=== PATIENT | female | born 1990 | race Caucasian/White ===

== ENCOUNTER 2016-10-04 10:53 | Emergency (ER) | payer SELFPAY ==
[2016-10-04 11:13] VITALS: TEMP 97.5
[2016-10-04 11:14] VITALS: BMI 24.0
[2016-10-04] MEDS ORDERED: OXYCODONE HCL 5 MG TABLET PO ONE (11:24)
--- NOTE | 2016-10-04 11:39 | EDPRACDOC ---
- General Information Chief Complaint: Lower Leg Pain Stated Complaint: RT LEG PAIN Time Seen by Provider: 10/04/16 11:21 Information Source: Patient Mode Of Arrival: Car Home Medications: Home Medications Ibuprofen Tablet [Motrin] 800 mg PO QID #30 tab 10/04/16 Allergies/Adverse Reactions: Allergies Allergy/AdvReac Type Severity Reaction Status Date / Time Sulfa (Sulfonamide Allergy See Verified 10/04/16 11:16 Antibiotics) Comments - History of Present Illness Onset: 3-4 days HPI: PT PRESENTS WITH RIGHT CALF PAIN THAT BEGAN A COUPLE OF DAYS AGO WITH PAIN BEHIND THE RIGHT KNEE. PT STATES IT IS PAINFUL TO WALK ON THE LEG. PT DOES NOT TAKE CONTROL BUT SHE DOES SMOKE, Mechanism: Reports: None Circumstances: Reports: Unknown Last Tetanus: Unknown Severity: Reports: Mild Able to Bear Weight: Limited Associated Signs & Symptoms: Reports: Numbness Pain In: Reports: Foot, Ankle, Leg, Knee, Hip, Thigh ED Past Medical History - History Reviewed Yes Nurses notes reviewed and agree except as marked - Patient Medical History Psychological History: Denies: Depression - Social Medical History Smoking Status: Heavy tobacco smoker (5 or more cigarettes/day or daily pipe/ cigar) EDM Review of Systems - Review of Systems ROS Negative Except as Marked: Yes All systems reviewed and were negative except as marked - Physical Exam Constitutional: Alert Oriented to: Time, Person, Place Last recorded Vital Signs: Last Vital Signs Temp 97.5 F 10/04/16 11:13 Pulse 98 10/04/16 11:13 Resp 18 10/04/16 11:13 BP 145/70 10/04/16 11:13 Pulse Ox 97 10/04/16 11:13 Oxygen Pulse Oxygen Saturation 97 O2 Device Oxygen Flow Rate Fraction of Inspired Oxygen ( FIO2) - HEENT Head: Normal ( normocephalic) Eye Exam: Normal (PERRL, EOMI, Sclera white) Oropharynx: Normal (Pharynx:Moist without exudate,Gums-no swelling) Nose: No Symptoms Reported (septum midline) Neck: Normal (FROM, trachea at midline) - Respiratory/Cardiovascular Respiratory: Normal - CTA (BBS clear to auscultation without adventitious sounds ) Cardiovascular: Normal (RRR without murmur, gallop or rub) - GI Auscultation: Normal (NABS) Palpation: Normal (Soft,No rebound or guarding, non distended) Tenderness: Non tender Nolasco's Sign: Negative Rectal Exam: Deferred - Musculoskeletal Back: Normal (Non-Tender) Extremities: Calf Tenderness, Pedal Pulse (2+). negative: Pedal Edema - Integumentary Skin: Normal, Warm, Dry Lymphatics: Normal (no adenopathy) - Neurologic Memory Impaired: Normal Motor Function: Normal (Normal tone, Pulses 2+ No cyanosis or edema, FROM) Cranial Nerve: Normal (CN II-X11 intact sensation, strength 5/5) Cerebellar: Normal Mood Description: Normal Perception: Normal - Differential Diagnosis Other - Results 10/04/16 11:32 10/04/16 11:32 Decision Time to Discharge: 12:59 - Departure Disposition: Home Condition: Stable Final Diagnosis: Garcia cyst Qualifiers: Laterality: right Qualified Code(s): M71.21 - Synovial cyst of popliteal space [Garcia], right knee Instructions: RICE: Routine Care for Injuries, Garcia's Cyst (ED) Education/Counseling Given To: Patient Education/Counseling Given Regarding: Diagnosis, Treatment, Prognosis, Follow Up Referrals: Ronan Hernandez II, MD [Staff Physician] - One Week Maxi Johnson MD [Staff Physician] - One Week Prescriptions: Ibuprofen Tablet [Motrin] 800 mg PO QID #30 tab Additional Instructions: ICE AND ELEVATION. FOLLOW UP WITH ORTHOPEDIC IF PAIN PERSIST. FOLLOW UP WITH PCP NEXT WEEK. RETURN TO THE ED FOR WORSENING.
[2016-10-04 11:42] LABS: AUTOMATED BASOPHIL 0.8 % (0-2); AUTOMATED EOSINOPHIL 1.2 % (0-5); AUTOMATED LYMPH 20.7 % (17-44); AUTOMATED MONOCYTE 7.3 % (3-10); MPV 7.9 fL (7.4-10.4)
[2016-10-04 11:54] LABS: BLOOD UREA NITROGEN 12 MG/DL (7-17); CALCIUM 9.4 MG/DL (8.4-10.2); CALCULATED OSMOLALITY 268 MOs/Kg (270-290); CHLORIDE 102 mEq/L (98-107); GLUCOSE 97 MG/DL (70-99); SODIUM LEVEL 139 mEq/L (137-146); TOTAL PROTEIN 7.7 G/DL (6.3-8.2)
[2016-10-04 12:26] LABS: LEUKOCYTES/URINE NEG (NEGATIVE); NITRITE/URINE NEG (NEGATIVE); RBC/URINE 0-2 (0-5); URINE OCCULT BLOOD NEG (NEG/TRACE); WBC/URINE 0-2 (0-5)
--- NOTE | 2016-10-04 12:55 | DIRPT ---
CLINICAL DATA: 26-year-old female with right calf pain EXAM: RIGHT LOWER EXTREMITY VENOUS DOPPLER ULTRASOUND TECHNIQUE: [place]ford-scale sonography with graded compression, as well as color Doppler and duplex ultrasound were performed to evaluate the lower extremity deep venous systems from the level of the common femoral vein and including the common femoral, femoral, profunda femoral, popliteal and calf veins including the posterior tibial, peroneal and gastrocnemius veins when visible. The superficial great saphenous vein was also interrogated. Spectral Doppler was utilized to evaluate flow at rest and with distal augmentation maneuvers in the common femoral, femoral and popliteal veins. COMPARISON: None. FINDINGS: Contralateral Common Femoral Vein: Respiratory phasicity is normal and symmetric with the symptomatic side. No evidence of thrombus. Normal compressibility. Common Femoral Vein: No evidence of thrombus. Normal compressibility, respiratory phasicity and response to augmentation. Saphenofemoral Junction: No evidence of thrombus. Normal compressibility and flow on color Doppler imaging. Profunda Femoral Vein: No evidence of thrombus. Normal compressibility and flow on color Doppler imaging. Femoral Vein: No evidence of thrombus. Normal compressibility, respiratory phasicity and response to augmentation. Popliteal Vein: No evidence of thrombus. Normal compressibility, respiratory phasicity and response to augmentation. Calf Veins: No evidence of thrombus. Normal compressibility and flow on color Doppler imaging. Superficial Great Saphenous Vein: No evidence of thrombus. Normal compressibility and flow on color Doppler imaging. Venous Reflux: None. Other Findings: None. IMPRESSION: No evidence of deep venous thrombosis. Electronically Signed By: Judson Sheehan M.D. On: 10/04/2016 12:52
[2016-10-04 13:55] VITALS: BP 104/60; PULSE 69
== END 2016-10-04 14:06 | disposition home or self-care (01) ==
LOC: EDMC 10:53
DX: M71.21 Synovial cyst of popliteal space [Baker], right knee (principal)
CPT/HCPCS: 36415; 80053; 81001; 81025; 85025; 93971; 99283; J3490

== ENCOUNTER 2016-10-26 09:39 | Emergency (ER) | payer BC ==
[2016-10-26 10:00] VITALS: TEMP 97.7; BMI 22.9
[2016-10-26] MEDS ORDERED: ONDANSETRON HCL 4 MG ODT TAB PO ONE (10:08)
--- NOTE | 2016-10-26 10:24 | EDPRACDOC ---
- General Information Chief Complaint: Abdominal Pain Stated Complaint: VOMITING Time Seen by Provider: 10/26/16 10:07 Home Medications: Home Medications Ondansetron HCl [Zofran] 4 mg PO TID PRN #14 tablet 10/26/16 Promethazine [Phenergan] 25 mg PO Q6 PRN #10 tab 10/26/16 Allergies/Adverse Reactions: Allergies Allergy/AdvReac Type Severity Reaction Status Date / Time Sulfa (Sulfonamide Allergy See Verified 10/26/16 09:56 Antibiotics) Comments - History of Present Illness Onset: 29 hous HPI: CONSTIPATION SO DAYS AGO. PATIENT SELF-TREATED WITH MULTIPLE STOOL SOFTENERS. FOLLOWING DAY SHE DEVELOPED CRAMPY EPIGASTRIC PERIUMBILICAL ABDOMINAL PAIN ASSOCIATED MULTIPLE EPISODES OF NAUSEA VOMITING. NO DIARRHEA BUT SHE HAS HAD FORMED AND LOOSE STOOL. NO FEVER CHILLS OR OTHER SYSTEMIC SIGNS OF ILLNESS. Last Menstrual Period: 1 week ED Past Medical History - History Reviewed Yes Nurses notes reviewed and agree except as marked - Patient Medical History Psychological History: Reports: Anxiety. Denies: Depression Systemic History: Reports: No Significant History Surgical History: Reports: No Significant History - Social Medical History Smoking Status: Heavy tobacco smoker (5 or more cigarettes/day or daily pipe/ cigar) ETOH: None Substance Abuse: None Lives With: Family Lives In: Home EDM Review of Systems - Review of Systems ROS Negative Except as Marked: Yes All systems reviewed and were negative except as marked - Physical Exam Constitutional: No apparent distress, Alert (Awake), Restless (ANXIOUS) Oriented to: Time, Person, Place Last recorded Vital Signs: Last Vital Signs Temp 97.7 F 10/26/16 09:56 Pulse 112 10/26/16 09:56 Resp 18 10/26/16 09:56 BP 127/70 10/26/16 09:56 Pulse Ox 100 10/26/16 09:56 Oxygen Pulse Oxygen Saturation 100 O2 Device Room Air Oxygen Flow Rate Fraction of Inspired Oxygen ( FIO2) - HEENT Head: Normal ( normocephalic) Eye Exam: Normal (PERRL, EOMI, Sclera white) Oropharynx: Normal (Pharynx:Moist without exudate,Gums-no swelling) Nose: No Symptoms Reported (septum midline) Neck: Normal (FROM, trachea at midline) - Respiratory/Cardiovascular Respiratory: Normal - CTA (BBS clear to auscultation without adventitious sounds ) Cardiovascular: Normal (RRR without murmur, gallop or rub) - GI Auscultation: Normal (NABS) Palpation: Normal (Soft,No rebound or guarding, non distended) Tenderness: Non tender. negative: Guarding, RUQ, Rebound, Rigidity, Epigastric Nolasco's Sign: Negative - Musculoskeletal Back: Normal (Non-Tender) Extremities: Normal (Normal tone, Pulses 2+ No cyanosis or edema, FROM) - Integumentary Skin: Normal, Warm, Dry Lymphatics: Normal (no adenopathy) - Neurologic Memory Impaired: Normal Motor Function: Normal (Normal tone, Pulses 2+ No cyanosis or edema, FROM) Cranial Nerve: Normal (CN II-X11 intact sensation, strength 5/5) Cerebellar: Normal Mood Description: Normal Thought: Coherent Perception: Normal - Re-evaluation Re-evaluation 3 Re-evaluation Time: 11:31 (TAKING PO'S, NO FURTHER PROBLEMS) - Results Urine Color Yellow 10/26/16 10:00 Urine Clarity Clear 10/26/16 10:00 Urine pH 9.0 (5.0-8.0) H 10/26/16 10:00 Ur Specific [place] </=1.005 (1.003-1.035) 10/26/16 10:00 Urine Protein 2+ (NEG/TRACE) H 10/26/16 10:00 Urine Glucose (UA) Neg (NEGATIVE) 10/26/16 10:00 Urine Ketones 3+ (NEGATIVE) H 10/26/16 10:00 Urine Occult Blood Neg (NEG/TRACE) 10/26/16 10:00 Urine Nitrite Neg (NEGATIVE) 10/26/16 10:00 Urine Bilirubin Neg (NEGATIVE) 10/26/16 10:00 Urine Urobilinogen <2.0 MG/DL (0-1) 10/26/16 10:00 Ur Leukocyte Esterase Neg (NEGATIVE) 10/26/16 10:00 Urine RBC 0-2 (0-5) 10/26/16 10:00 Urine WBC 0-2 (0-5) 10/26/16 10:00 Ur Epithelial Cells 2+ 10/26/16 10:00 Urine Bacteria Few (NEG/FEW) 10/26/16 10:00 Urine Mucus Mod (NEG/OCC) H 10/26/16 10:00 Urine Test Neg (NEGATIVE) 10/26/16 10:00 Lab Results 10/26/16 10/26/16 10:00 10:00 Urine Color Yellow Urine Clarity Clear Urine pH 9.0 H Ur Specific [place] </=1.005 Urine Protein 2+ H Urine Glucose (UA) Neg Urine Ketones 3+ H Urine Occult Blood Neg Urine Nitrite Neg Urine Bilirubin Neg Urine Urobilinogen <2.0 Ur Leukocyte Esterase Neg Urine RBC 0-2 Urine WBC 0-2 Ur Epithelial Cells 2+ Urine Bacteria Few Urine Mucus Mod H Urine Test Neg - Departure Disposition: Home Condition: Stable Final Diagnosis: Dehydration Vomiting Qualifiers: Vomiting type: unspecified Vomiting Intractability: non-intractable Nausea presence: with nausea Qualified Code(s): R11.2 - Nausea with vomiting, unspecified Instructions: Acute Abdominal Pain (ED) Education/Counseling Given To: Patient Education/Counseling Given Regarding: Diagnosis, Treatment, Prognosis Referrals: None,No Provider [Primary Care Provider] - One Week Prescriptions: New Ondansetron HCl [Zofran] 4 mg PO TID PRN #14 tablet PRN Reason: NAUSEA OR VOMITING Promethazine [Phenergan] 25 mg PO Q6 PRN #10 tab PRN Reason: Nausea/Vomiting Additional Instructions: Drink sips of Gatorade every 2-3 minutes while awake. Do NOT drink large volumes of fluid at once. If you vomit, take the nausea-vomiting medicine prescribed, wait ~ 30 minutes, and restart the sipping process. Return to the Emergency Department if you think you are getting dehydrated, have persistent abdominal pain that is unrelenting, have worse or different symptoms, or any concerns.
[2016-10-26 10:43] LABS: LEUKOCYTES/URINE NEG (NEGATIVE); NITRITE/URINE NEG (NEGATIVE); RBC/URINE 0-2 (0-5); URINE OCCULT BLOOD NEG (NEG/TRACE); WBC/URINE 0-2 (0-5)
[2016-10-26 11:48] VITALS: BP 119/60; PULSE 74
== END 2016-10-26 11:50 | disposition home or self-care (01) ==
LOC: ED 09:39
DX: E86.0 Dehydration (principal); R11.2 Nausea with vomiting, unspecified
CPT/HCPCS: 81001; 81025; 99283; J3490